=== PATIENT | female | born 1955 | race African-American/Black ===

== ENCOUNTER 2018-10-05 08:52 | Emergency (ER) | payer MEDICAID ==
[~2018-10-05] VITALS: Ht 167.6 cm; Wt 64.0 kg
[2018-10-05] MEDS ORDERED: ALBUTEROL (0.083%) 2.5MG/3ML NEB HHN STA (09:00)
[2018-10-05] MEDS ORDERED: IPRATROPIUM BROMIDE (0.02%) 0.5MG/2.5ML NEB HHN STA (09:00)
[2018-10-05 10:02] LABS: BASOPHILS % 0.4 % (0.0-2.0); EOSINOPHILS % 3.5 % (0.0-5.0); HEMATOCRIT. 41.9 % (36.0-48.0); HEMOGLOBIN. 13.7 g/dL (12.0-16.0); LYMPHOCYTES % 17.7 % (20.0-50.0); MEAN CORPUSCULAR HEMOGLOBIN 28.6 pg (28.0-32.0); MEAN CORPUSCULAR VOLUME 87.5 fL (81.0-99.0); MEAN PLATELET VOLUME 8.7 fl (7.4-10.4); MONOCYTES % 12.4 % (2.0-8.0); PLATELET 235 x1000/uL (130-400); RED BLOOD CELL COUNT 4.79 mill/uL (4.2-5.4); RED CELL DISTRIBUTION WIDTH 15.1 % (11.6-14.6)
[2018-10-05 10:08] LABS: CHLORIDE 104 mEq/L (98-107)
[2018-10-05 10:29] VITALS: BP 146/99
[2018-10-05] MEDS ORDERED: SODIUM CHLORIDE 0.9% 1,000 ML IV NR (10:45)
[2018-10-06] MEDS ORDERED: ALBU18HF2 IH (11:23)
[2018-10-06] MEDS ORDERED: FLUT1DIS3 IH (11:23)
[2018-10-06] MEDS ORDERED: MOME13HF INH (11:23)
== END 2018-10-05 11:18 | disposition left against medical advice (07) ==
LOC: ER 08:52 → CANBEDREQ 11:41
DX: J44.1 Chronic obstructive pulmonary disease with (acute) exacerbation (principal); I10 Essential (primary) hypertension; R00.0 Tachycardia, unspecified; Z79.82 Long term (current) use of aspirin; Z85.9 Personal history of malignant neoplasm, unspecified; Z90.10 Acquired absence of unspecified breast and nipple
CPT/HCPCS: 36415; 71045; 80053; 82962; 83880; 84484; 85025; 93005; 94640; 99284; J7611

== ENCOUNTER 2018-10-05 18:03 | Inpatient (IN) | payer MEDICAID ==
[~2018-10-05] VITALS: Ht 167.6 cm; Wt 60.9 kg
[2018-10-05] MEDS ORDERED: METHYLPREDNISOLONE SOD SUCC 125 MG/2 ML VIAL IV STA (19:50)
[2018-10-05] MEDS ORDERED: MORPHINE SULFATE 4 MG/ML CPJ (NOT FOR IM USE) IV STA (19:50)
[2018-10-05] MEDS ORDERED: ALBUTEROL (0.083%) 2.5MG/3ML NEB HHN STA (19:50)
[2018-10-05] MEDS ORDERED: IPRATROPIUM BROMIDE (0.02%) 0.5MG/2.5ML NEB HHN STA (19:50)
[2018-10-05] MEDS ORDERED: ONDANSETRON HCL 4MG/2ML INJ IV STA (19:50)
[2018-10-05 19:56] LABS: HEMATOCRIT. 41.1 % (36.0-48.0); HEMOGLOBIN. 13.3 g/dL (12.0-16.0); MEAN CORPUSCULAR VOLUME 86.5 fL (81.0-99.0); MEAN PLATELET VOLUME 9.1 fl (7.4-10.4); PLATELET 260 x1000/uL (130-400); RED BLOOD CELL COUNT 4.75 mill/uL (4.2-5.4)
[2018-10-05] MEDS ORDERED: NITROGLYCERIN OINT 1GM/INCH UDPKT TD ONE (20:00)
[2018-10-05] MEDS ORDERED: MAGNESIUM 2 G PREMIX 50 ML IV ONE (20:00)
[2018-10-05 20:02] LABS: CHLORIDE 102 mEq/L (98-107)
[2018-10-05 20:06] LABS: ETHANOL BLOOD < 10 mg/dL
[2018-10-05 20:10] LABS: PARTIAL THROMBOPLASTIN TIME 27.3 sec (23.4-31.0)
[2018-10-05 22:26] LABS: PLATELET ESTIMATE NORMAL
[2018-10-05] MEDS ORDERED: KETOROLAC 30MG/ML VIAL IV PRN (22:45)
[2018-10-05] MEDS ORDERED: ONDANSETRON HCL 4MG/2ML INJ IV PRN (22:45)
[2018-10-05] MEDS ORDERED: IPRATROPIUM/ALBUTEROL 0.5-3(2.5)MG/3ML NEB INH PRN (22:45)
[2018-10-05] MEDS ORDERED: DIPHENHYDRAMINE 50MG/ML VIAL IV PRN (22:45)
[2018-10-05] MEDS ORDERED: ACETAMINOPHEN 325MG TABLET PO PRN (22:45)
[2018-10-05] MEDS ORDERED: DOCUSATE SODIUM 100MG CAPSULE PO PRN (22:45)
[2018-10-05] MEDS ORDERED: GUAIFENESIN 200MG/10ML SUGAR FREE UDC PO PRN (22:45)
[2018-10-05] MEDS ORDERED: MAGNESIUM/ALUMINUM HYDROXIDE/SIMETHICONE 30ML UDC PO PRN (22:45)
[2018-10-05] MEDS ORDERED: CLONIDINE 0.1MG TABLET PO PRN (22:45)
[2018-10-05 23:45] LABS: *AMPHETAMINES SCREEN URINE NEGATIVE (NEGATIVE); *BARBITURATES SCREEN URINE NEGATIVE (NEGATIVE); *BENZODIAZEPINES SCREEN URINE NEGATIVE (NEGATIVE); *COCAINE SCREEN URINE NEGATIVE (NEGATIVE)
[2018-10-05 23:46] LABS: CANNABINOID URINE SCREEN NEGATIVE (NEGATIVE); METHADONE URINE SCREEN NEGATIVE (NEGATIVE); OPIATES URINE SCREEN PRESUMTIVE POSITIVE (NEGATIVE); PHENCYCLIDINE URINE SCREEN NEGATIVE (NEGATIVE)
[2018-10-06] MEDS ORDERED: IPRATROPIUM/ALBUTEROL 0.5-3(2.5)MG/3ML NEB HHN SCH
[2018-10-06] MEDS ORDERED: LEVOFLOXACIN 500MG PREMIX 100 ML IV SCH (01:00)
[2018-10-06] MEDS ORDERED: METHYLPREDNISOLONE SOD SUCC 125 MG/2 ML VIAL IV SCH (06:00)
[2018-10-06] MEDS: SODIUM CHLORIDE 0.9% INJ 3ML FLUSH IVF SCH ×2 (06:13→14:30)
[2018-10-06] MEDS: METHYLPREDNISOLONE SOD SUCC 125 MG/2 ML VIAL IV SCH ×2 (06:19→14:00)
[2018-10-06] MEDS ORDERED: CALCIUM CARBONATE 1250MG TABLET (500MG ELEMENTAL CALCIUM) PO SCH (09:00)
[2018-10-06] MEDS ORDERED: GUAIFENESIN 600MG ER TABLET PO SCH (09:00)
[2018-10-06] MEDS ORDERED: ENOXAPARIN 40MG/0.4ML SYR SUBCUT SCH (09:00)
[2018-10-06] MEDS ORDERED: AMLODIPINE 10MG TABLET PO SCH ×2 (09:00)
[2018-10-06 09:20] VITALS: BP 122/81
[2018-10-06] MEDS ORDERED: TRIAMCINOLONE ACETONIDE 0.1% CREAM 15GM TOP SCH (10:00)
[2018-10-06] MEDS ORDERED: ANASTROZOLE 1 MG TABLET PO SCH (10:00)
[2018-10-06] MEDS ORDERED: ALBU18HF2 IH (11:23)
[2018-10-06] MEDS ORDERED: MOME13HF INH (11:23)
[2018-10-06] MEDS ORDERED: FLUT1DIS3 IH (11:23)
[2018-10-06] MEDS ORDERED: LORAZEPAM 2MG/ML CPJ IM PRN (14:15)
[2018-10-06 16:00] VITALS: BP 139/84
[2018-10-06 16:19] VITALS: BP 139/84
[2018-10-06] MEDS ORDERED: SENNOSIDES/DOCUSATE SOD 8.6/50MG TABLET PO SCH (21:00)
== END 2018-10-06 18:30 | disposition home or self-care (01) | DRG 140 ==
LOC: ER 18:03 → 5WST 20:55 → EDBEDREQTM 20:57 → EDBEDREQ 20:57 → ENRESERV 10-06 07:49 → 5WST 10-06 10:06
PROVIDERS: ADMIT Internal Medicine; ATTEND Internal Medicine
DX: J44.1 Chronic obstructive pulmonary disease with (acute) exacerbation (principal); R65.10 Systemic inflammatory response syndrome (SIRS) of non-infectious origin without acute organ dysfunction; E11.9 Type 2 diabetes mellitus without complications; I10 Essential (primary) hypertension; L30.9 Dermatitis, unspecified; Z82.49 Family history of ischemic heart disease and other diseases of the circulatory system; Z87.891 Personal history of nicotine dependence; Z85.3 Personal history of malignant neoplasm of breast; Z90.12 Acquired absence of left breast and nipple; Z88.8 Allergy status to other drugs, medicaments and biological substances
CPT/HCPCS: 36415; 71045; 80305; 82962; 83880; 84484; 87804; 93005; 93970; 94640; 99285; J1650; J1956; J2060; J2270; J2405; J2930; J3475; J7611; J7620

== ENCOUNTER 2018-12-01 11:28 | Emergency (ER) | payer MEDICAID ==
[~2018-12-01] VITALS: Ht 167.6 cm; Wt 59.0 kg
[~2018-12-01 11:28] MED LIST: ALBU18HF2 IH; FLUT1DIS3 IH; MOME13HF INH
[2018-12-01] MEDS ORDERED: ALBUTEROL (0.083%) 2.5MG/3ML NEB HHN STA (12:59)
[2018-12-01] MEDS ORDERED: IPRATROPIUM BROMIDE (0.02%) 0.5MG/2.5ML NEB HHN STA (12:59)
[2018-12-01] MEDS ORDERED: METHYLPREDNISOLONE SOD SUCC 125 MG/2 ML VIAL IV STA (12:59)
[2018-12-01] MEDS ORDERED: ALBUTEROL (0.083%) 2.5MG/3ML NEB ONE (13:06)
[2018-12-01] MEDS ORDERED: IPRATROPIUM BROMIDE (0.02%) 0.5MG/2.5ML NEB ONE (13:07)
[2018-12-01 13:40] LABS: HEMATOCRIT. 40.1 % (36.0-48.0); HEMOGLOBIN. 13.2 g/dL (12.0-16.0); MEAN CORPUSCULAR HEMOGLOBIN 28.4 pg (28.0-32.0); MEAN CORPUSCULAR VOLUME 85.9 fL (81.0-99.0); MEAN PLATELET VOLUME 9.1 fl (7.4-10.4); PLATELET 223 x1000/uL (130-400); RED BLOOD CELL COUNT 4.67 mill/uL (4.2-5.4); RED CELL DISTRIBUTION WIDTH 14.8 % (11.6-14.6)
[2018-12-01 13:42] LABS: CHLORIDE 108 mEq/L (98-107)
[2018-12-01 14:01] LABS: PLATELET ESTIMATE NORMAL
[2018-12-01 14:44] VITALS: BP 131/82
== END 2018-12-01 15:18 | disposition left against medical advice (07) ==
LOC: ER 11:32
DX: F41.9 Anxiety disorder, unspecified (principal); J44.1 Chronic obstructive pulmonary disease with (acute) exacerbation; E11.9 Type 2 diabetes mellitus without complications; I10 Essential (primary) hypertension; Z90.10 Acquired absence of unspecified breast and nipple; Z88.6 Allergy status to analgesic agent; Z91.018 Allergy to other foods
CPT/HCPCS: 36415; 71045; 80053; 83880; 84484; 85025; 85379; 93005; 94640; 96374; 99284; J2930; J7611